=== PATIENT | male | born 1955 | race Caucasian/White ===

== ENCOUNTER 2023-07-13 21:29 | Emergency (ER) | payer MEDICARE ==
[2023-07-13] MEDS ORDERED: Acetaminophen 500 MG TAB ONE (22:10)
[2023-07-13] MEDS ORDERED: Azithromycin 250 MG TAB ONE (22:13)
[2023-07-13] MEDS ORDERED: Amoxicillin/Potassium Clav 875 MG TAB ONE (22:13)
[2023-07-13] MEDS ORDERED: Ibuprofen 800 MG TAB ONE (22:46)
== END 2023-07-13 23:54 | disposition home or self-care (01) ==
LOC: MADERS 21:29
DX: J18.9 Pneumonia, unspecified organism (principal); R00.0 Tachycardia, unspecified
CPT/HCPCS: 71045; 87804